=== PATIENT | male | born 1960 | race Caucasian/White ===

== ENCOUNTER → 2018-06-18 | Outpatient (CLI) | payer OTHER ==
[2018-06-18 09:43] LABS: ANION GAP 13 (8-16); BLOOD UREA NITROGEN 11 mg/dl (7-20); CALCIUM 9.2 mg/dl (8.4-10.2); CARBON DIOXIDE 25 mmol/L (21-31); CHLORIDE 108 mmol/L (97-110); GLUCOSE 97 mg/dl (70-220); POTASSIUM 4.6 mmol/L (3.5-5.1); SODIUM 141 mmol/L (135-144)
[2018-06-18] MEDS: NITROGLYCERIN AEROSOL (4.9 GM) (11:10)
[2018-06-18] MEDS: SOD CHLORIDE 0.9% 100 ML (11:12)
[2018-06-18] MEDS: IOHEXOL 100 ML (11:13)
== END | disposition home or self-care (01) ==
LOC: LAB 08:24
DX: R06.02 Shortness of breath (principal)
CPT/HCPCS: 75571; 75574; 80048